=== PATIENT | female | born 1960 | race Caucasian/White ===

== ENCOUNTER → 2016-07-30 | Outpatient (REF) | payer MEDICARE, MEDICAID ==
[~2016-07-30] MED LIST: /ADVA50050; ACET500C PO; ADV250INH INH; ADVA230A INH; AMLO-59 PO; AMLO10TA2 PO; ATOR40TA PO; BISO10TA PO; BISO5TAB5 PO; CLAR10CA3 PO; CYMB60CA3 PO; HYDR25TA6; KLON0.5T PO; LIDO5DIS; LISI2.5T; NICO21DI4; OSEL75CA PO; PANT40TA2 PO; PERC5TAB6 PO; PERC5TAB8; POTA20TA; PRED10TA2; PRED20TAB PO; PROA1AER INH; PROV90AE; SENO17.2; SPIR25TA2 PO; TIOT18INH INH; VIBR100C PO; VICO5TAB; VICO5TAB OR; ZEST20TA4 OR
== END ==
LOC: M LAB REF 17:13
PROVIDERS: ATTEND Internal Medicine Nephrology
DX: N39.0 Urinary tract infection, site not specified (principal)

== ENCOUNTER → 2016-08-09 | Outpatient (CLI) | payer MEDICARE, MEDICAID ==
[2016-08-17 00:07] LABS: Codeine Negative (.); Hydrocodone 56.2 ng/mL (.); Hydromorphone Negative (.); Morphine Negative (.)
== END ==
LOC: M WUC 12:47
PROVIDERS: ATTEND Family Medicine
DX: F11.90 Opioid use, unspecified, uncomplicated (principal); Z79.899 Other long term (current) drug therapy; Z23 Encounter for immunization
CPT/HCPCS: 36415; 80307; 90686; G0008; G0463

== ENCOUNTER → 2016-10-04 | Outpatient (CLI) | payer MEDICARE ==
--- NOTE | 2016-10-04 18:02 | REPMRS ---
Patient History The patient states she has not had a clinical breast exam in over a year. Patient is postmenopausal. No known family history of cancer. Digital Woman Screen Mammo: October 04, 2016 - Exam #: [id number] Bilateral CC and MLO view(s) were taken. Technologist: Alissa Moralez, Technologist Prior study comparison: September 14, 2014, digital woman screen mammo performed at [facility]. FINDINGS: There are scattered fibroglandular densities. There has been no change in the appearance of the mammogram from the prior studies. There is a mild amount of scattered fibroglandular density which is fairly symmetric. There is no interval development of dominant mass, architectural distortion, or clustered microcalcification suggestive of malignancy. ASSESSMENT: BI-RADS/ACR category 1 mammogram. Negative. Recommendation Routine screening mammogram in 1 year (for women over age 40). This mammogram was interpreted with the aid of an FDA-approved computer-aided dectection system. Electronically Signed By: Rsaheed Doe MD 10/04/16 0216
== END ==
LOC: M WHC 13:30
PROVIDERS: ATTEND Family Medicine
DX: Z12.31 Encounter for screening mammogram for malignant neoplasm of breast (principal)

== ENCOUNTER → 2016-10-19 | Outpatient (CLI) | payer MEDICARE ==
--- NOTE | 2016-10-21 06:12 | REP ---
MRI LUMBAR SPINE WITHOUT CONTRAST: HISTORY: Back pain. COMPARISON: 01/10/2014. Decreased signal intensity on T2-weighted images is present in the L4-5 and L5-S1 intervertebral discs. The discs are ___ decreased in height . These findings are consistent with disc degeneration. There is no disc bulge or herniation at the L1-2 and L2-3 levels. The nerves exit the neural foramina without compression. A diffuse disc bulge is present at the L3-4 level. There is hypertrophy of the ligamenta flava and posterior articulating facets. These findings produce minimal central canal stenosis. The L3 nerves exit the neural foramina without compression. A diffuse disc bulge is present at the L4-5 level. There is hypertrophy of the ligament flava and posterior articulating facets. These findings produce minimal central canal stenosis. The L4 nerves exit the neural foramina without compression. A diffuse disc bulge and small central disc protrusion are present at the L5-S1 level. There is minimal compression of the thecal sac. There is hypertrophy of the posterior articulating facets. There is compression of the right L5 nerve in the neural foramen. The left L5 nerve exits the neural foramen without compression. The conus medullaris is normal in appearance terminating at the level of the L1-2 intervertebral disc. Normal signal intensity is present in the lumbar vertebral bodies. IMPRESSION: 1. Minimal central canal stenosis at the L3-4 and L4-5 levels secondary to disc bulge, ligamentous and facet hypertrophy. 2. Diffuse disc bulge and small central disc protrusion at the L5-S1 level with minimal thecal sac compression. There is compression of the right L5 nerve in the neural foramen. The L5 nerve compression is a new finding. Signed by Ozzie Bennett MD 10/21/2016 08:09 A
== END ==
LOC: M RAD 12:10
PROVIDERS: ATTEND Family Medicine
DX: M51.26 Other intervertebral disc displacement, lumbar region (principal); M48.06 Spinal stenosis, lumbar region; M51.27 Other intervertebral disc displacement, lumbosacral region; M47.816 Spondylosis without myelopathy or radiculopathy, lumbar region

== ENCOUNTER → 2016-11-12 | Outpatient (REF) | payer MEDICARE | LOC: M SFHCWAGY 14:02 | PROVIDERS: ATTEND Nurse Practitioner Women's Health | DX: Z12.4 Encounter for screening for malignant neoplasm of cervix (principal); R87.618 Other abnormal cytological findings on specimens from cervix uteri; Z12.12 Encounter for screening for malignant neoplasm of rectum | CPT/HCPCS: 82270; 87624; G0101; G0123 ==

== ENCOUNTER → 2017-01-03 | Outpatient (CLI) | payer MEDICARE ==
[~2017-01-03] MED LIST changes: +AMLO-140 PO; -AMLO-59 PO; -ATOR40TA PO; +ATOR40TA75 PO; +PERC5TAB12 PO; -PERC5TAB6 PO; -PROA1AER INH; +PROAAER10 INH
--- NOTE | 2017-01-08 08:51 | DEXA ---
AP SPINE L1 - L4 1.038 -1.3 -0.4 LT FEMUR TOTAL 0.804 -1.6 -0.9 RT FEMUR TOTAL 0.790 -1.7 -1.0 TOTAL BODY TOTAL OTHER DUAL FEMUR FRAX* ASSESSMENT Risk factors: Premature menopause, tobacco use 10 year probability of fracture Major osteoporotic fracture 11.9 % Hip fracture 2.7 % COMMENTS: There is low bone density of the spine and hips. FOLLOW-UP: Recommendation for the next bone density exam: 2 years. MELANIE
== END ==
LOC: M WHC 13:13
PROVIDERS: ATTEND Nurse Practitioner Women's Health
DX: Z13.820 Encounter for screening for osteoporosis (principal); Z78.0 Asymptomatic menopausal state; F17.200 Nicotine dependence, unspecified, uncomplicated

== ENCOUNTER → 2017-01-29 | Outpatient (CLI) | payer MEDICARE ==
--- NOTE | 2017-01-30 08:09 | REP ---
Clinical: Acute renal failure. Technique: Real time gusman scale ultrasound examination using curved array transducer. Findings: The right kidney measures 7.8 x 2.8 x 2.1 cm and appears mildly atrophic but otherwise normal in contour, reniform shape and echogenicity. No hydronephrosis, nephrolithiasis or cystic/mass lesion identified. The left kidney is normal in contour, size, echogenicity and reniform shape measuring 9.1 x 3.9 x 4.4 cm. No hydronephrosis, nephrolithiasis, cystic or mass lesion appreciated. The bladder is incompletely distended and grossly unremarkable. Impression: Mild atrophic appearance to the right kidney. Normal left kidney. Signed by Donovan Wu MD 01/30/2017 08:01 A
== END ==
LOC: M RAD 13:45
PROVIDERS: ATTEND Internal Medicine Nephrology
DX: N17.9 Acute kidney failure, unspecified (principal)

== ENCOUNTER → 2017-07-01 | Outpatient (REF) | payer MEDICARE, MEDICAID ==
[2017-07-02 14:09] LABS: SODIUM,RANDOM URINE 76 MEQ/L
[2017-07-02 14:11] LABS: OSMOLALITY SERUM 296 MOSM/KG (275-295)
[2017-07-02 14:12] LABS: OSMOLALITY URINE 238 MOSM/KG (500-800)
== END ==
LOC: M LAB REF 07-02 13:20
DX: E87.1 Hypo-osmolality and hyponatremia (principal)
CPT/HCPCS: 83930

== ENCOUNTER 2017-08-19 14:14 | Emergency (ER) | payer MEDICARE, MEDICAID ==
[2017-08-19 15:17] LABS: INFLUENZA A AMPLIFICATION NEGATIVE (NEGATIVE); INFLUENZA B AMPLIFICATION NEGATIVE (NEGATIVE)
== END 2017-08-19 16:00 | disposition home or self-care (01) ==
LOC: M ED 14:14
DX: J18.9 Pneumonia, unspecified organism (principal); F17.200 Nicotine dependence, unspecified, uncomplicated; Z88.8 Allergy status to other drugs, medicaments and biological substances; Z79.899 Other long term (current) drug therapy; Z79.51 Long term (current) use of inhaled steroids
CPT/HCPCS: 71046

== ENCOUNTER → 2017-08-27 | Outpatient (REF) | payer MEDICARE ==
[2017-08-27 16:55] LABS: AMPHETAMINES URINE REFLEX NEGATIVE (NEGATIVE); BARBITURATES URINE REFLEX NEGATIVE (NEGATIVE); BENZODIAZEPINES URINE REFLEX NEGATIVE (NEGATIVE); CANNABINOIDS URINE REFLEX NEGATIVE (NEGATIVE); COCAINE METABOLITE URINE REFLE NEGATIVE (NEGATIVE); METHADONE URINE REFLEX NEGATIVE (NEGATIVE); PHENCYCLIDINE URINE REFLEX NEGATIVE (NEGATIVE)
[2017-08-27 16:59] LABS: OPIATES URINE REFLEX PENDING CONFIRMATION (NEGATIVE)
[2017-09-01 14:11] LABS: Opiates Negative (Cutoff=200)
== END ==
LOC: M SFHCPLAZ 13:44
DX: J18.9 Pneumonia, unspecified organism (principal); G89.29 Other chronic pain
CPT/HCPCS: G0480

== ENCOUNTER → 2017-09-11 | Outpatient (CLI) | payer MEDICARE, MEDICAID | LOC: M RAD 13:14 | DX: M79.604 Pain in right leg (principal) | CPT/HCPCS: 73590 ==

== ENCOUNTER → 2017-12-15 | Outpatient (CLI) | payer MEDICARE | LOC: M SMT 15:06 | DX: M54.2 Cervicalgia (principal); M47.812 Spondylosis without myelopathy or radiculopathy, cervical region | CPT/HCPCS: 72052 ==

== ENCOUNTER → 2017-12-16 | Outpatient (REF) | payer MEDICARE, MEDICAID | LOC: M SFHCPLAZ 17:09 | DX: R30.0 Dysuria (principal); F17.210 Nicotine dependence, cigarettes, uncomplicated | CPT/HCPCS: 87088; 87186 ==

== ENCOUNTER → 2018-01-01 | Outpatient (CLI) | payer MEDICARE, MEDICAID | LOC: M RAD 14:42 | DX: Z12.2 Encounter for screening for malignant neoplasm of respiratory organs (principal); R91.8 Other nonspecific abnormal finding of lung field; F17.210 Nicotine dependence, cigarettes, uncomplicated | CPT/HCPCS: G0297 ==

== ENCOUNTER → 2018-03-05 | Outpatient (REF) | payer MEDICARE, MEDICAID ==
[2018-03-05 19:27] LABS: INR 0.97; PROTHROMBIN TIME 12.9 SECONDS (12.1-14.4)
[2018-03-05 19:28] LABS: PARTIAL THROMBOPLASTIN TIME 32.9 SECONDS (25.4-37.6)
[2018-03-05 20:05] LABS: HEMATOCRIT 38.1 % (36.0-47.0); HEMOGLOBIN 12.9 g/dl (12.0-15.5); MEAN CORPUSCULAR HEMOGLOBIN 34.2 pg (27.0-33.0); MEAN CORPUSCULAR HGB CONC 33.9 g/dl (32.0-36.5); MEAN CORPUSCULAR VOLUME 101.1 fl (80.0-96.0); PLATELET COUNT, AUTOMATED 204 10^3/uL (150-450); RED BLOOD COUNT 3.77 10^6/uL (4.00-5.40); RED CELL DISTRIBUTION WIDTH 13.9 % (11.5-14.5); WHITE BLOOD COUNT 4.5 10^3/uL (4.0-10.0)
== END ==
LOC: M LABDRAWP 16:05
DX: R91.8 Other nonspecific abnormal finding of lung field (principal); Z79.01 Long term (current) use of anticoagulants
CPT/HCPCS: 85610

== ENCOUNTER → 2018-04-06 | Outpatient (CLI) | payer MEDICARE, MEDICAID ==
[2018-04-06 11:08] LABS: BASO # 0.1 10^3/uL (0.0-0.2); BASO % 1.2 % (0.0-1.0); EOS # 0.1 10^3/uL (0.0-0.50); EOS % 2.3 % (0.0-3.0); HEMATOCRIT 28.3 % (36.0-47.0); HEMOGLOBIN 9.2 g/dl (12.0-15.5); IMMATURE GRANULOCYTE % 1.1 % (0-3.0); LYMPH # 1.8 10^3/uL (1.5-4.5); MEAN CORPUSCULAR HEMOGLOBIN 32.2 pg (27.0-33.0); MEAN CORPUSCULAR HGB CONC 32.5 g/dl (32.0-36.5); MONO # 0.6 10^3/uL (0.0-0.8); MONO % 10.2 % (0.0-5.0); NEUTROPHILS # 3.1 10^3/uL (1.8-7.7); NEUTROPHILS % 54.2 % (36.0-66.0); PLATELET COUNT, AUTOMATED 490 10^3/uL (150-450); RED BLOOD COUNT 2.86 10^6/uL (4.00-5.40); RED CELL DISTRIBUTION WIDTH 13.2 % (11.5-14.5); WHITE BLOOD COUNT 5.7 10^3/uL (4.0-10.0)
== END ==
LOC: M SMT 09:25
DX: J95.811 Postprocedural pneumothorax (principal)
CPT/HCPCS: 85025

== ENCOUNTER → 2018-04-10 | Outpatient (REF) | payer MEDICARE, MEDICAID ==
[2018-04-10 16:19] LABS: HEMATOCRIT 29.8 % (36.0-47.0); HEMOGLOBIN 9.3 g/dl (12.0-15.5); MEAN CORPUSCULAR HEMOGLOBIN 30.7 pg (27.0-33.0); MEAN CORPUSCULAR HGB CONC 31.2 g/dl (32.0-36.5); MEAN CORPUSCULAR VOLUME 98.3 fl (80.0-96.0); PLATELET COUNT, AUTOMATED 573 10^3/uL (150-450); RED BLOOD COUNT 3.03 10^6/uL (4.00-5.40); RED CELL DISTRIBUTION WIDTH 13.2 % (11.5-14.5); WHITE BLOOD COUNT 5.5 10^3/uL (4.0-10.0)
[2018-04-10 16:27] LABS: ALBUMIN 2.7 GM/DL (3.2-5.2); ALBUMIN/GLOBULIN RATIO 0.64 (1.00-1.93); ALKALINE PHOSPHATASE 310 U/L (45-117); ALT/SGPT 15 U/L (12-78); ANION GAP 8 MEQ/L (8-16); AST/SGOT 15 U/L (7-37); BILIRUBIN,TOTAL 0.2 MG/DL (0.2-1.0); BLOOD UREA NITROGEN 19 MG/DL (7-18); CALCIUM LEVEL 9.6 MG/DL (8.5-10.1); CARBON DIOXIDE LEVEL 28 MEQ/L (21-32); CHLORIDE LEVEL 102 MEQ/L (98-107); CREATININE FOR GFR 1.29 MG/DL (0.55-1.30); FERRITIN 220 NG/ML (8-252); GLOMERULAR FILTRATION RATE 45.3 (>51); GLUCOSE, FASTING 93 MG/DL (70-100); IRON (FE) 32 UG/DL (50-170); POTASSIUM SERUM 4.7 MEQ/L (3.5-5.1); SODIUM LEVEL 138 MEQ/L (136-145); TOTAL IRON BINDING CAPACITY 247 UG/DL (250-450); TOTAL PROTEIN 6.9 GM/DL (6.4-8.2)
[2018-04-10 16:36] LABS: FOLATE 3.5 NG/ML (>5.4)
== END ==
LOC: M SFHCPLAZ 12:54
DX: D64.9 Anemia, unspecified (principal); R63.0 Anorexia
CPT/HCPCS: 82746

== ENCOUNTER → 2018-04-20 | Outpatient (CLI) | payer MEDICARE, MEDICAID | LOC: M SMT 08:52 | DX: R91.8 Other nonspecific abnormal finding of lung field (principal) | CPT/HCPCS: 71046 ==

== ENCOUNTER → 2018-05-04 | Outpatient (CLI) | payer MEDICARE, MEDICAID | LOC: M SMT 09:04 | DX: J44.9 Chronic obstructive pulmonary disease, unspecified (principal); J98.4 Other disorders of lung | CPT/HCPCS: 71046 ==

== ENCOUNTER → 2018-06-01 | Outpatient (REF) | payer MEDICARE | LOC: M SFHCPLAZ 10:18 | DX: F11.90 Opioid use, unspecified, uncomplicated (principal); Z79.891 Long term (current) use of opiate analgesic | CPT/HCPCS: 80307 ==

== ENCOUNTER 2018-06-12 23:42 | Emergency (ER) | payer OTHER, MEDICARE, MEDICAID ==
[2018-06-12] MEDS: NS 1,000 ML IV (22:34)
[2018-06-12] MEDS: KETOROLAC 30 MG/ML VIAL (J1885) IV (22:34)
[2018-06-12 22:36] LABS: HEMATOCRIT 34.8 % (36.0-47.0); HEMOGLOBIN 11.2 g/dl (12.0-15.5); MEAN CORPUSCULAR HEMOGLOBIN 28.4 pg (27.0-33.0); MEAN CORPUSCULAR HGB CONC 32.2 g/dl (32.0-36.5); MEAN CORPUSCULAR VOLUME 88.3 fl (80.0-96.0); PLATELET COUNT, AUTOMATED 264 10^3/uL (150-450); RED BLOOD COUNT 3.94 10^6/uL (4.00-5.40); RED CELL DISTRIBUTION WIDTH 12.9 % (11.5-14.5); WHITE BLOOD COUNT 3.5 10^3/uL (4.0-10.0)
[2018-06-12 22:37] LABS: POSITIVE MORPH POS FLAG
[2018-06-12 22:38] LABS: ADD MANUAL DIFFER YES; DIFF SLIDE NUMBER 297
[2018-06-12 22:47] LABS: INR 0.91; PARTIAL THROMBOPLASTIN TIME 31.1 SECONDS (25.4-37.6); PROTHROMBIN TIME 12.3 SECONDS (12.1-14.4)
[2018-06-12 22:53] LABS: BASOPHILS 5 % (0-4); EOSINOPHILS 6 % (0-5); LYMPHOCYTES 40 % (16-52); MONOCYTES 10 % (0-8); NEUTROPHILS 39 % (35-75)
[2018-06-12 22:54] LABS: PLATELET ESTIMATE NORMAL (NORMAL)
[2018-06-12 23:08] LABS: ALBUMIN 3.1 GM/DL (3.2-5.2); ALBUMIN/GLOBULIN RATIO 0.89 (1.00-1.93); ALKALINE PHOSPHATASE 124 U/L (45-117); ALT/SGPT 11 U/L (12-78); ANION GAP 8 MEQ/L (8-16); AST/SGOT 12 U/L (7-37); BILIRUBIN,DIRECT < 0.1 MG/DL (0.0-0.2); BILIRUBIN,TOTAL 0.3 MG/DL (0.2-1.0); BLOOD UREA NITROGEN 19 MG/DL (7-18); CALCIUM LEVEL 8.6 MG/DL (8.5-10.1); CARBON DIOXIDE LEVEL 27 MEQ/L (21-32); CHLORIDE LEVEL 101 MEQ/L (98-107); CREATININE FOR GFR 1.42 MG/DL (0.55-1.30); GLOMERULAR FILTRATION RATE 40.6 (>51); GLUCOSE, FASTING 85 MG/DL (70-100); LIPASE 96 U/L (73-393); POTASSIUM SERUM 4.4 MEQ/L (3.5-5.1); SODIUM LEVEL 136 MEQ/L (136-145); TOTAL PROTEIN 6.6 GM/DL (6.4-8.2)
[~2018-06-12 23:42] MED LIST changes: -/ADVA50050; -ACET500C PO; -ADV250INH INH; -ADVA230A INH; -AMLO-140 PO; -AMLO10TA2 PO; -ATOR40TA75 PO; -BISO10TA PO; -BISO5TAB5 PO; -CLAR10CA3 PO; -CYMB60CA3 PO; -HYDR25TA6; +ISOVUE-370 76% 100ML VIAL (Q9967) As Ordered; -KLON0.5T PO; -LIDO5DIS; -LISI2.5T; -NICO21DI4; -OSEL75CA PO; -PANT40TA2 PO; -PERC5TAB12 PO; -PERC5TAB8; -POTA20TA; -PRED10TA2; -PRED20TAB PO; -PROAAER10 INH; -PROV90AE; -SENO17.2; -SPIR25TA2 PO; -TIOT18INH INH; -VIBR100C PO; -VICO5TAB; -VICO5TAB OR; -ZEST20TA4 OR
== END 2018-06-13 02:09 | disposition home or self-care (01) ==
LOC: M ED 06-13 02:09
DX: S29.012A Strain of muscle and tendon of back wall of thorax, initial encounter (principal); V49.59XA Passenger injured in collision with other motor vehicles in traffic accident, initial encounter; Y92.410 Unspecified street and highway as the place of occurrence of the external cause; J44.9 Chronic obstructive pulmonary disease, unspecified; D64.9 Anemia, unspecified; G89.29 Other chronic pain; M54.2 Cervicalgia; Z79.899 Other long term (current) drug therapy; Z79.82 Long term (current) use of aspirin; Z88.8 Allergy status to other drugs, medicaments and biological substances; Z87.891 Personal history of nicotine dependence
CPT/HCPCS: Q9967

== ENCOUNTER → 2018-07-16 | Outpatient (CLI) | payer OTHER, MEDICARE, MEDICAID ==
[~2018-07-16] MED LIST changes: +/ADVA50050; +ACET500C PO; +ADV250INH INH; +ADVA230A INH; +AMLO-140 PO; +AMLO10TA5 PO; +APAP325T4 PO; +ASPI1TAB PO; +ATOR40TA75 PO; +AVEL1TAB3 PO; +BISO10TA PO; +BISO5TAB5 PO; +CALC1CAP31 PO; +CLAR10CA3 PO; +CYMB60CA3 PO; +HYDR25TA6; -ISOVUE-370 76% 100ML VIAL (Q9967) As Ordered; +KLON0.5T PO; +LIDO5DIS; +LIDO5TD TOP; +LISI2.5T; +NICO21DI4; +NICO21DI6 TD; +OSEL75CA PO; +PANT40TA3 PO; +PERC5TAB12 PO; +PERC5TAB8; +POTA20TA; +PRED10TA2; +PRED20TAB PO; +PREG100CA PO; +PROAAER10 INH; +PROV90AE; +SENO17.2; +SPIR-10 PO; +TIOT18INH INH; +VIBR100C PO; +VICO5TAB; +VICO5TAB OR; +ZEST20TA4 OR
--- NOTE | 2018-07-16 14:35 | REP ---
CT cervical spine without contrast HISTORY: Neck pain COMPARISON: None There is no acute fracture or subluxation. Disc bulges are present at the C3-4 and C6-7 levels. Disc bulges with associated osteophyte formation are present at the C4-5 and C5-6 levels. There is minimal narrowing of the spinal canal. Uncinate process hypertrophy is present at the C4-5 and C5-6 levels. This produces mild to moderate narrowing of the neural foramina. The C4-5 and C5-6 intervertebral discs are decreased in height consistent with disc degeneration. IMPRESSION: 1. There is no acute fracture or subluxation. 2. There is cervical spondylosis at the C3-4 through C6-7 levels. Electronically Signed by Ozzie Bennett MD 07/16/2018 02:27 P
--- NOTE | 2018-07-16 14:44 | REP ---
CT Lumbar Spine without contrast HISTORY: Back pain COMPARISON: None There is no disc bulge or herniation at the L1-2 level. The L1 nerves exit the neural foramina without compression. A diffuse disc bulge is present at the L2-3 level. There is minimal compression of the thecal sac. The L2 nerves exit the neural foramina without compression. A diffuse disc bulge is present at the L3-4 level. There is minimal compression of the thecal sac. The L3 nerves exit the neural foramina without compression. A diffuse disc bulge is present at the L4-5 level. There is hypertrophy of the ligamenta flava and posterior to the facets. These findings produce mild central canal stenosis. The L4 nerves exit the neural foramina without compression. Diffuse disc bulge is present at the L5-L1 level. There is minimal compression of the thecal sac. There is hypertrophy of the posterior to the facets. There is compression of the L5 nerves in the neural foramina. The intervertebral discs and vertebral bodies are normal in height. There is no subluxation. IMPRESSION: 1. Diffuse disc bulges at the L2-3 , L3-4 and L5-L1 levels with minimal thecal sac compression. There is compression of the L5 nerves in the neural foramina. 2. Mild central canal stenosis at the L4-5 level secondary to disc bulge, ligamentous and facet hypertrophy. Electronically Signed by Ozzie Bennett MD 07/16/2018 02:35 P
--- NOTE | 2018-07-16 14:57 | REP ---
CT thoracic spine without contrast. HISTORY: Back pain COMPARISON : None There is no acute fracture or subluxation. There is no disc bulge or herniation. The spinal canal and neural foramina are patent. The intervertebral discs and vertebral bodies are normal in height. Anterior osteophytes are present throughout the thoracic spine. Atelectasis or scarring is present in the the right lower lobe. IMPRESSION: There is no disc bulge or herniation. Electronically Signed by Ozzie Bennett MD 07/16/2018 02:48 P
== END ==
LOC: M RAD 13:53
PROVIDERS: ATTEND Family Medicine
DX: M47.892 Other spondylosis, cervical region (principal); M51.26 Other intervertebral disc displacement, lumbar region; M48.061 Spinal stenosis, lumbar region without neurogenic claudication

== ENCOUNTER → 2018-08-25 | Outpatient (REF) | payer OTHER ==
[2018-08-25 13:54] LABS: BASO # 0.1 10^3/uL (0.0-0.2); BASO % 2.4 % (0.0-1.0); EOS # 0.1 10^3/uL (0.0-0.50); EOS % 3.7 % (0.0-3.0); HEMATOCRIT 40.9 % (36.0-47.0); HEMOGLOBIN 12.7 g/dl (12.0-15.5); LYMPH # 1.6 10^3/uL (1.5-4.5); LYMPH % 54.4 % (24.0-44.0); MEAN CORPUSCULAR HEMOGLOBIN 27.9 pg (27.0-33.0); MEAN CORPUSCULAR HGB CONC 31.1 g/dl (32.0-36.5); MEAN CORPUSCULAR VOLUME 89.7 fl (80.0-96.0); MONO # 0.3 10^3/uL (0.0-0.8); MONO % 11.1 % (0.0-5.0); NEUTROPHILS % 28.4 % (36.0-66.0); PLATELET COUNT, AUTOMATED 318 10^3/uL (150-450); RED BLOOD COUNT 4.56 10^6/uL (4.00-5.40)
[2018-08-25 14:25] LABS: NEUTROPHILS # 0.8 10^3/uL (1.8-7.7)
[2018-08-25 14:43] LABS: CALCIUM LEVEL 9.5 MG/DL (8.5-10.1); CREATININE FOR GFR 1.69 MG/DL (0.55-1.30); GLOMERULAR FILTRATION RATE 33.2 (>51); PERCENT SATURATION 17.5 % (13.2-45.0); POTASSIUM SERUM 4.7 MEQ/L (3.5-5.1)
== END ==
LOC: M SFHCPLAZ 11:10
PROVIDERS: ATTEND Family Medicine
DX: D64.9 Anemia, unspecified (principal); M54.5 Low back pain

== ENCOUNTER → 2018-09-03 | Outpatient (CLI) | payer OTHER, MEDICARE, MEDICAID ==
--- NOTE | 2018-09-03 18:42 | REP ---
Lumbar spine MRI study without contrast: History: Low back pain. Comparison MRI study is from October 19, 2016. Technique: Sagittal and axial T1 and T2-weighted scans are acquired in the usual fashion with and without fat saturation. Sequences include spin echo, turbo spin-echo, and STIR imaging sequences. MRI findings: Cortical and medullary bone signal intensity are normal. Vertebral body heights are preserved. Alignment is normal. The tip of the conus medullaris is normal in position and appearance at L1. Significant atrophy is noted in the right kidney as before. No other extra spinal abnormality. At the L5-S1 level, there is a broad-based central disc protrusion indenting the ventral margin of the thecal sac as before. There is moderate osteoarthritic facet hypertrophy and some ligamentum flavum hypertrophy noted bilaterally. There is a right foraminal disc bulge producing right neural foraminal narrowing. This is more prominent than on the October 19, 2016 study. There is minimal narrowing of the left neural foramen. At L4-5, there is mild diffuse disc bulging. Facet hypertrophy and ligamentum flavum hypertrophy is noted. Canal size is borderline. No nerve root compression is appreciated. At L3-4, there is no significant abnormality. At L2-3 and L1-2 no significant abnormality is seen. Impression: Central disc protrusion at L5-S1 with right foraminal disc bulging producing significant right neural foraminal narrowing and mild left neural foraminal narrowing is seen. The facet hypertrophy is noted. Borderline canal size at L4-5. The L5-S1 neural foraminal narrowing is somewhat more prominent. Otherwise unchanged. Electronically Signed by Winston Deo MD 09/03/2018 07:22 P
== END ==
LOC: M RAD 16:39
PROVIDERS: ATTEND Family Medicine
DX: M54.5 Low back pain (principal)

== ENCOUNTER → 2018-09-16 | Outpatient (CLI) | payer MEDICARE, MEDICAID ==
--- NOTE | 2018-09-17 09:21 | REPMRS ---
Patient History The patient states she has not had a clinical breast exam in over a year. No known family history of cancer. Digital Woman Screen Mammo: September 16, 2018 - Exam #: [id number] Bilateral CC and MLO view(s) were taken. Technologist: Letty Saavedra Technologist Prior study comparison: October 04, 2016, digital woman screen mammo performed at [facility]. September 14, 2014, digital woman screen mammo performed at [facility]. FINDINGS: There are scattered fibroglandular densities. There has been no change in the appearance of the mammogram from the prior studies. There is a mild amount of scattered fibroglandular density which is fairly symmetric. There is no interval development of dominant mass, architectural distortion, or clustered microcalcification suggestive of malignancy. 3-D tomosynthesis shows no additional findings. Assessment: BI-RADS/ACR category 1 mammogram. Negative Mammogram. Recommendation Routine screening mammogram of both breasts in 1 year (for women over age 40). This patient's Lifetime Breast Cancer RIsk is estimated at 6.1 %. This mammogram was interpreted with the aid of an FDA-approved computer-aided dectection system. Electronically Signed By: Rasheed Doe MD 09/17/18 0921
== END ==
LOC: M WHC 13:04
PROVIDERS: ATTEND Family Medicine
DX: Z12.31 Encounter for screening mammogram for malignant neoplasm of breast (principal)

== ENCOUNTER → 2018-10-13 | Outpatient (REF) | payer MEDICARE, MEDICAID ==
[~2018-10-13] MED LIST changes: -/ADVA50050; +ADVA1AER2; -ASPI1TAB PO; +ASPI81TA26 PO; -BISO10TA PO; +BISO10TA13 PO; +SENN17.2; -SENO17.2
[2018-10-13 13:35] LABS: BASO % 0.9 % (0.0-1.0); EOS # 0.2 10^3/uL (0.0-0.50); EOS % 5.6 % (0.0-3.0); HEMATOCRIT 38.5 % (36.0-47.0); HEMOGLOBIN 12.1 g/dl (12.0-15.5); LYMPH # 1.3 10^3/uL (1.5-4.5); LYMPH % 39.1 % (24.0-44.0); MEAN CORPUSCULAR HEMOGLOBIN 28.8 pg (27.0-33.0); MEAN CORPUSCULAR HGB CONC 31.4 g/dl (32.0-36.5); MEAN CORPUSCULAR VOLUME 91.7 fl (80.0-96.0); MONO # 0.3 10^3/uL (0.0-0.8); MONO % 10.6 % (0.0-5.0); NEUTROPHILS # 1.4 10^3/uL (1.8-7.7); NEUTROPHILS % 43.8 % (36.0-66.0); PLATELET COUNT, AUTOMATED 208 10^3/uL (150-450); WHITE BLOOD COUNT 3.2 10^3/uL (4.0-10.0)
[2018-10-13 13:49] LABS: INR 0.86; PROTHROMBIN TIME 11.8 SECONDS (12.1-14.4)
[2018-10-13 14:00] LABS: ALBUMIN 3.6 GM/DL (3.2-5.2); BILIRUBIN,TOTAL 0.2 MG/DL (0.2-1.0); CALCIUM LEVEL 9.4 MG/DL (8.5-10.1); CREATININE FOR GFR 1.77 MG/DL (0.55-1.30); GLOMERULAR FILTRATION RATE 31.5 (>51); POTASSIUM SERUM 4.7 MEQ/L (3.5-5.1); TOTAL PROTEIN 6.5 GM/DL (6.4-8.2)
[2018-10-14 11:08] LABS: HEPATITIS C VIRUS ABY INDEX 0.1 INDEX (<0.8)
== END ==
LOC: M SFHCPLAZ 11:14
PROVIDERS: ATTEND Family Medicine
DX: R14.0 Abdominal distension (gaseous) (principal)
CPT/HCPCS: 36415; 80053; 82172; 83010; 83883; 85025; 85610; 86803; G0463

== ENCOUNTER → 2018-10-22 | Outpatient (REF) | payer MEDICARE, MEDICAID ==
[2018-10-22 19:40] LABS: CALCIUM LEVEL 9.3 MG/DL (8.5-10.1); CREATININE FOR GFR 1.54 MG/DL (0.55-1.30); POTASSIUM SERUM 4.6 MEQ/L (3.5-5.1)
== END ==
LOC: M SFHCPLAZ 14:57
PROVIDERS: ATTEND Family Medicine
DX: R79.89 Other specified abnormal findings of blood chemistry (principal)

== ENCOUNTER → 2018-10-26 | Outpatient (CLI) | payer MEDICARE, MEDICAID ==
--- NOTE | 2018-10-27 04:36 | REP ---
Clinical: Distension and the abdominal pain. Technique: Roland scale ultrasound using curved array transducer. Findings: The liver, spleen and pancreas are normal in contour, size, and echogenicity without focal hepatic, splenic or pancreatic lesions identified. The gallbladder is normal without gallstones, wall thickening or pericholecystic fluid. No intrahepatic biliary ductal dilatation is appreciated. The common bile duct is mildly prominent measuring between 6.8 and 8.8 mm diameter but without obvious obstructing stone or abnormality. The right kidney appears mildly atrophic with cortical thinning, increased central fatty changes and measures 8.7 x 2.4 x 2.2 cm. Left kidney measures 9.6 x 4.2 x 4.2 cm and appears normal. Aorta appears normal and measures 1.5 cm maximal diameter. No ascites noted. Impression: 1. Mildly atrophic appearing right kidney. 2. Otherwise relatively normal complete abdominal ultrasound. Electronically Signed by Donovan Wu MD 10/27/2018 04:28 A
== END ==
LOC: M RAD 09:07
PROVIDERS: ATTEND Family Medicine
DX: R14.0 Abdominal distension (gaseous) (principal); N26.1 Atrophy of kidney (terminal)

== ENCOUNTER → 2018-10-28 | Outpatient (REF) | payer MEDICARE, MEDICAID ==
[2018-10-28 12:53] LABS: APPEARANCE, URINE CLEAR (CLEAR); BACTERIA, URINE AUTO 1+ (NEGATIVE); BILIRUBIN, URINE AUTO NEGATIVE (NEGATIVE); BLOOD, URINE BLOOD 1+ (NEGATIVE); COLOR, URINE YELLOW (YELLOW); GLUCOSE, URINE (UA) AUTO NEGATIVE (NEGATIVE); KETONE, URINE AUTO NEGATIVE (NEGATIVE); LEUKOCYTE ESTERASE, URINE AUTO 1+ (NEGATIVE); NITRITE, URINE AUTO NEGATIVE (NEGATIVE); PROTEIN, URINE AUTO NEGATIVE (NEGATIVE); RBC, URINE AUTO 2 /HPF (0-3); SPECIFIC GRAVITY URINE AUTO 1.008 (1.002-1.035); SQUAMOUS EPITHELIAL CELL UR AU 0 /HPF (0-6); UROBILINOGEN, URINE AUTO 0.2 mg/dL (0.0-2.0); WBC, URINE AUTO 11 /HPF (0-3)
== END ==
LOC: M SFHCPLAZ 12:25
PROVIDERS: ATTEND Family Medicine
DX: R79.89 Other specified abnormal findings of blood chemistry (principal)

== ENCOUNTER → 2018-11-02 | Outpatient (CLI) | payer MEDICARE, MEDICAID ==
--- NOTE | 2018-11-03 04:49 | REP ---
Clinical: Elevated creatinine levels. Technique: Real time gusman scale evaluation using curved array transducer. Findings: The right kidney is mildly atrophic and echogenic measuring 7.1 x 2.1 x 2.3 cm without evidence for nephrolithiasis, hydronephrosis, cystic or mass lesion. The left kidney is normal in contour, size, echogenicity, and reniform shape measuring 9.6 x 4.2 x 4.6 cm. No nephrolithiasis, hydronephrosis, cystic or mass lesion appreciated. The bladder is incompletely distended but grossly normal in appearance. Impression: 1. Mildly atrophic appearance to the right kidney with increased echogenicity suggesting asymmetric renal disease. 2. Normal appearance to the left kidney. Electronically Signed by Donovan Wu MD 11/03/2018 04:41 A
== END ==
LOC: M RAD 14:13
PROVIDERS: ATTEND Family Medicine
DX: R79.89 Other specified abnormal findings of blood chemistry (principal)

== ENCOUNTER 2019-01-04 16:54 | Emergency (ER) | payer MEDICARE, MEDICAID ==
[~2019-01-04] VITALS: Ht 162.6 cm; Wt 60.6 kg
--- NOTE | 2019-01-04 19:25 | REP ---
LEFT KNEE: Five views of the left knee are performed. No acute fracture or dislocation is seen. No intrinsic osseous pathology is seen. There is a moderate to large joint effusion. Vascular calcifications are seen posteriorly. IMPRESSION: Moderate to large joint effusion. Electronically Signed by Facundo Roland MD 01/05/2019 11:14 A
[2019-01-04] MEDS ORDERED: ACETAMINOPHEN TAB 650MG DOSE (2X325MG) PO ONE (20:15)
[2019-01-04 20:28] VITALS: BP 160/80
== END 2019-01-04 21:37 | disposition home or self-care (01) ==
LOC: M ED 16:54
DX: M25.462 Effusion, left knee (principal); K21.9 Gastro-esophageal reflux disease without esophagitis; J44.9 Chronic obstructive pulmonary disease, unspecified; I10 Essential (primary) hypertension; Z79.51 Long term (current) use of inhaled steroids; Z79.82 Long term (current) use of aspirin; Z79.891 Long term (current) use of opiate analgesic; Z79.899 Other long term (current) drug therapy; Z87.891 Personal history of nicotine dependence; Z88.6 Allergy status to analgesic agent

== ENCOUNTER → 2019-01-12 | Outpatient (CLI) | payer MEDICARE, MEDICAID ==
--- NOTE | 2019-01-12 15:21 | REP ---
Duplex extremity venous ultrasound: Left lower extremity. History: Left leg pain. Rule out DVT. Findings: The deep veins are anechoic and fully compressible from the groin to the popliteal fossa in the left lower extremity. Color flow imaging is homogeneous. Spectral Doppler interrogation demonstrates intact respiratory variation in flow and normal manual augmentation of flow. There is no evidence of deep vein thrombosis. There is a complex cystic area in the left knee posteriorly consistent with a Young's cyst measuring 7.6 x 9.3 x 1.1 cm. There are normal appearing lymph nodes in the left groin soft tissues. Impression: Young's cyst, otherwise negative left lower extremity duplex venous ultrasound. No evidence of deep vein thrombosis. Electronically Signed by Winstno Doe MD 01/12/2019 03:12 P
== END ==
LOC: M RAD 14:33
PROVIDERS: ATTEND Family Medicine
DX: M71.22 Synovial cyst of popliteal space [Baker], left knee (principal); M25.462 Effusion, left knee; R60.0 Localized edema
CPT/HCPCS: 93971; G0463

== ENCOUNTER 2019-02-23 11:21 | Emergency (ER) | payer MEDICARE, MEDICAID ==
[~2019-02-23] VITALS: Ht 154.9 cm; Wt 62.7 kg
[~2019-02-23 11:21] MED LIST changes: +BISO5TAB14 PO; -BISO5TAB5 PO
[2019-02-23] MEDS ORDERED: RANI300T (11:44)
[2019-02-23 12:19] LABS: BASO % 0.1 % (0.0-1.0); EOS % 0.5 % (0.0-3.0); HEMATOCRIT 32.4 % (36.0-47.0); HEMOGLOBIN 10.3 g/dl (12.0-15.5); LYMPH # 0.6 10^3/uL (1.5-4.5); LYMPH % 8.2 % (24.0-44.0); MEAN CORPUSCULAR HGB CONC 31.8 g/dl (32.0-36.5); MONO # 0.5 10^3/uL (0.0-0.8); MONO % 6.5 % (0.0-5.0); NEUTROPHILS # 6.5 10^3/uL (1.8-7.7); NEUTROPHILS % 84.3 % (36.0-66.0); PLATELET COUNT, AUTOMATED 275 10^3/uL (150-450); RED BLOOD COUNT 3.68 10^6/uL (4.00-5.40); WHITE BLOOD COUNT 7.7 10^3/uL (4.0-10.0)
[2019-02-23] MEDS ORDERED: ALBUTEROL SULFATE 2.5 MG/0.5 ML INH NEB SOLN INH ONE (12:30)
[2019-02-23] MEDS ORDERED: IPRATROPIUM 0.5MG/ALBUTEROL 2.5MG INH SOL UD 3ML (DUONEB)(J7620) NEB ONE (12:30)
[2019-02-23 12:46] LABS: ALBUMIN 2.9 GM/DL (3.2-5.2); BILIRUBIN,DIRECT 0.1 MG/DL (0.0-0.2); BILIRUBIN,TOTAL 0.4 MG/DL (0.2-1.0); CALCIUM LEVEL 8.9 MG/DL (8.5-10.1); CREATININE FOR GFR 1.55 MG/DL (0.55-1.30); GLOMERULAR FILTRATION RATE 36.6 (>51); POTASSIUM SERUM 3.7 MEQ/L (3.5-5.1)
--- NOTE | 2019-02-23 13:27 | REP ---
CHEST, PORTABLE: AP view of the chest is performed and compared to a prior study of 05/04/2018. Chronic pleural and parenchymal opacities are again seen in the right lung which appears stable. However there is a new ill-defined 2 cm opacity in the right upper lobe. The left lung remains clear. The heart is normal in size. The mediastinal silhouette is unchanged. Electronically Signed by Facundo Roland MD 02/24/2019 12:06 A
[2019-02-23 14:08] LABS: APPEARANCE, URINE HAZY (CLEAR); BACTERIA, URINE AUTO 1+ (NEGATIVE); BILIRUBIN, URINE AUTO NEGATIVE (NEGATIVE); BLOOD, URINE BLOOD 1+ (NEGATIVE); COLOR, URINE YELLOW (YELLOW); GLUCOSE, URINE (UA) AUTO NEGATIVE (NEGATIVE); KETONE, URINE AUTO NEGATIVE (NEGATIVE); LEUKOCYTE ESTERASE, URINE AUTO TRACE (NEGATIVE); MUCUS, URINE SMALL (NEGATIVE); NITRITE, URINE AUTO POSITIVE (NEGATIVE); PROTEIN, URINE AUTO NEGATIVE (NEGATIVE); RBC, URINE AUTO 2 /HPF (0-3); SPECIFIC GRAVITY URINE AUTO 1.013 (1.002-1.035); SQUAMOUS EPITHELIAL CELL UR AU 1 /HPF (0-6); UROBILINOGEN, URINE AUTO 0.2 mg/dL (0.0-2.0); WBC, URINE AUTO 15 /HPF (0-3)
--- NOTE | 2019-02-23 14:19 | REP ---
CT CHEST WITHOUT IV CONTRAST: CT chest performed without IV contrast. Sagittal and coronal reconstruction images are performed. Comparison made with prior study of 06/12/2018. There are scattered patchy infiltrates throughout the right upper lobe. Minor patchy infiltrate is seen in the right middle and lower lobes. There is focal irregular consolidative opacity inferomedially in the left lower lobe. This may all be related to pneumonia, but close followup is recommended. Otherwise there is scattered pleural and parenchymal scarring again seen predominantly in the apices and lower lobes. I do not see significant mediastinal or axillary adenopathy. 1 cm precarinal lymph node is present. There is mild atherosclerotic calcification of the thoracic aorta without aneurysm. The heart is not enlarged. There is no pleura or pericardial effusion. There is a small hiatal hernia. There are degenerative changes of the spine. IMPRESSION: Patchy parenchymal opacities bilaterally as discussed in detail above, may be related to pneumonia. Recommend close followup. Electronically Signed by Facundo Roland MD 02/24/2019 12:08 A
[2019-02-23] MEDS ORDERED: PREGABALIN 100 MG CAP (LYRICA) PO ONE (14:45)
[2019-02-23] MEDS ORDERED: PRED20TA PO (15:19)
[2019-02-23] MEDS ORDERED: CEFD300CAP PO (15:19)
[2019-02-23] MEDS ORDERED: AZIT-12 PO (15:19)
[2019-02-23] MEDS ORDERED: cefTRIAXone SOD 2 GM in D5W MINI-BAG PLUS 50 ML IV ONE (15:30)
[2019-02-23] MEDS ORDERED: predniSONE 20 MG TAB PO ONE (15:30)
[2019-02-23] MEDS ORDERED: AZITHROMYCIN 250 MG TAB PO ONE (15:30)
[2019-02-23] MEDS: ACETAMINOPHEN TAB 650MG DOSE (2X325MG) PO ONE ×2 (15:37→15:40)
[2019-02-23 16:16] VITALS: BP 129/65
--- NOTE | 2019-02-24 13:34 | ED PDOC ---
Post-Departure Follow-Up dr neri faxed formal report of ct chest for fu Laureen Bhatti MD Feb 24, 2019 13:34
== END 2019-02-23 16:21 | disposition home or self-care (01) ==
LOC: M ED 11:21 → EDBD 11:21 → M ED 16:21
DX: J18.9 Pneumonia, unspecified organism (principal); I10 Essential (primary) hypertension; J44.9 Chronic obstructive pulmonary disease, unspecified; K21.9 Gastro-esophageal reflux disease without esophagitis; M25.562 Pain in left knee; M50.30 Other cervical disc degeneration, unspecified cervical region; M48.00 Spinal stenosis, site unspecified; Z87.891 Personal history of nicotine dependence; Z88.6 Allergy status to analgesic agent; Z79.899 Other long term (current) drug therapy; Z79.51 Long term (current) use of inhaled steroids; Z79.82 Long term (current) use of aspirin
CPT/HCPCS: 36415; 71045; 71250; 80048; 80076; 81001; 83605; 85025; 87040; 87088; 87186; 87486; 87581; 87633; 87798; 93041; 94640; 94760; 96365; 99285; J0696

== ENCOUNTER → 2019-03-31 | Outpatient (CLI) | payer MEDICARE, MEDICAID ==
[~2019-03-31] MED LIST changes: +AZIT-12 PO; +CEFD300CAP PO; +OXYC10TA3; +PRED20TA PO; +PREG150C; +RANI300T
[2019-03-31 14:50] LABS: CALCIUM LEVEL 9.4 MG/DL (8.5-10.1); CREATININE FOR GFR 1.67 MG/DL (0.55-1.30); GLOMERULAR FILTRATION RATE 33.5 (>51); POTASSIUM SERUM 4.1 MEQ/L (3.5-5.1)
--- NOTE | 2019-03-31 16:50 | REP ---
URINARY BLADDER ULTRASOUND: Real-time sonographic evaluation of the urinary bladder was performed. Bladder measures 9.3 x 9.0 x 6.3 cm for a total volume of 344 mL. No mass or calculus is seen. There are bilateral ureteral jets in the urinary bladder with Doppler color evaluation. Postvoid residual is 72 mL which is 21% of the original volume. Debris is seen in the bladder. IMPRESSION :No mass or calculus. Mild debris is seen in the bladder. Postvoid residual is 72 mL, 21% of the original volume. Electronically Signed by Facundo Roland MD 04/01/2019 05:38 P
== END ==
LOC: M RAD 14:00
PROVIDERS: ATTEND Family Medicine
DX: R39.15 Urgency of urination (principal); N18.3 Chronic kidney disease, stage 3 (moderate)
CPT/HCPCS: 36415; 76857; 80048; 81002; G0463

== ENCOUNTER → 2019-04-01 | Outpatient (REF) | payer MEDICARE, MEDICAID ==
[~2019-04-01] MED LIST changes: -BISO5TAB14 PO; +BISO5TAB9 PO; -OXYC10TA3; -PREG150C
[2019-04-01 14:09] LABS: APPEARANCE, URINE CLEAR (CLEAR); BACTERIA, URINE AUTO NEGATIVE (NEGATIVE); BILIRUBIN, URINE AUTO NEGATIVE (NEGATIVE); BLOOD, URINE BLOOD 1+ (NEGATIVE); COLOR, URINE STRAW (YELLOW); GLUCOSE, URINE (UA) AUTO NEGATIVE (NEGATIVE); KETONE, URINE AUTO NEGATIVE (NEGATIVE); LEUKOCYTE ESTERASE, URINE AUTO NEGATIVE (NEGATIVE); NITRITE, URINE AUTO NEGATIVE (NEGATIVE); PROTEIN, URINE AUTO NEGATIVE (NEGATIVE); RBC, URINE AUTO 2 /HPF (0-3); SPECIFIC GRAVITY URINE AUTO 1.003 (1.002-1.035); SQUAMOUS EPITHELIAL CELL UR AU 0 /HPF (0-6); UROBILINOGEN, URINE AUTO 0.2 mg/dL (0.0-2.0); WBC, URINE AUTO 1 /HPF (0-3)
== END ==
LOC: M LAB REF 13:39
PROVIDERS: ATTEND Family Medicine
DX: R39.15 Urgency of urination (principal)

== ENCOUNTER → 2019-04-15 | Outpatient (CLI) | payer MEDICARE, MEDICAID ==
--- NOTE | 2019-04-16 07:18 | REP ---
Clinical: Follow up abnormal chest findings. Comparison: 02/23/2019, 03/22/2018, 01/27/2012 . Technique: Axial noncontrast images from the thoracic inlet to the upper abdomen with coronal and sagittal re-formations. Findings: Moderate COPD/emphysematous changes along with scattered mild bronchiectasis and fibro atelectatic changes are appreciated along with ill-defined nodular densities primarily noted in the right mid to upper lung zone and bilateral bases (left greater than right). Previously identified patchy infiltrates have essentially resolved. No effusion. No pneumothorax. Tracheobronchial tree is patent. No obvious adenopathy by noncontrast evaluation. Atherosclerotic changes to the thoracic aorta and coronary arteries noted without aneurysm or cardiomegaly. No pericardial effusion. Musculoskeletal structures without focal osseous abnormality. Limited upper abdomen demonstrates stable atrophic appearance to the right kidney and normal bilateral adrenal glands. Impression: 1. Previously noted elements of air space disease resolved. 2. Moderate emphysematous changes with scattered chronic-appearing fibroatelectatic changes as well as scattered nodular densities are again identified. Nodular components are not completely stable as compared to prior examinations and warrant 9-12 month follow-up examination. Electronically Signed by Donvoan Wu MD 04/16/2019 07:09 A
== END ==
LOC: M RAD 13:33
PROVIDERS: ATTEND Family Medicine
DX: R91.8 Other nonspecific abnormal finding of lung field (principal)

== ENCOUNTER → 2019-05-11 | Outpatient (CLI) | payer MEDICARE, MEDICAID ==
--- NOTE | 2019-05-12 01:56 | REP ---
Clinical: Pneumonia . Comparison: 02/23/2019 . Technique: PA and lateral. Findings: The mediastinum and cardiac silhouette are normal. The lung boston are clear and without acute consolidation, effusion, or pneumothorax. The skeletal structures are intact and normal. Impression: 1. No acute cardiopulmonary process. Electronically Signed by Donovan Wu MD 05/12/2019 01:47 A
== END ==
LOC: M WUC 16:01
PROVIDERS: ATTEND Internal Medicine Pulmonary Disease
DX: J18.9 Pneumonia, unspecified organism (principal)

== ENCOUNTER → 2019-05-24 | Outpatient (CLI) | payer MEDICARE, MEDICAID ==
--- NOTE | 2019-05-24 13:34 | REP ---
Clinical: Chronic stage III renal disease. Technique: Real time gusman scale and color evaluation using curved array transducer. Findings: The right kidney is atrophic and hyperechoic without hydronephrosis, nephrolithiasis, cystic or renal mass lesion. Left kidney is relatively normal in size, echotexture and appearance without hydronephrosis, nephrolithiasis, cystic or renal mass lesion. Right kidney measures 7.3 x 3 for 1 x 2.5 cm. Left kidney measures 9.9 x 5.5 x 4.7 cm. Bladder is unremarkable and bilateral ureteral jets are noted. Impression: 1. Atrophic appearance to the right kidney. Electronically Signed by Donovan Wu MD 05/24/2019 01:26 P
== END ==
LOC: M RAD 12:57
PROVIDERS: ATTEND Internal Medicine Nephrology
DX: N18.3 Chronic kidney disease, stage 3 (moderate) (principal); I12.9 Hypertensive chronic kidney disease with stage 1 through stage 4 chronic kidney disease, or unspecified chronic kidney disease

== ENCOUNTER 2019-06-24 00:15 | Emergency (ER) | payer MEDICARE, MEDICAID ==
[~2019-06-24] VITALS: Ht 152.4 cm; Wt 68.2 kg
[2019-06-24] MEDS ORDERED: OXYC10TA3 (00:25)
[2019-06-24] MEDS ORDERED: PREG150C (00:25)
[2019-06-24 01:07] LABS: INFLUENZA A AMPLIFICATION NEGATIVE (NEGATIVE); INFLUENZA B AMPLIFICATION NEGATIVE (NEGATIVE)
[2019-06-24] MEDS ORDERED: ACETAMINOPHEN 500 MG TAB PO ONE (03:15)
[2019-06-24] MEDS ORDERED: methylPREDNISolone INJ 125 MG/2 ML VIAL (J2930) IM ONE (03:15)
[2019-06-24] MEDS ORDERED: PRED20TA PO (03:19)
[2019-06-24 03:23] VITALS: BP 132/76
--- NOTE | 2019-06-24 07:37 | REP ---
Clinical: Cough and fever . Comparison: 05/11/2019 . Technique: PA and lateral. Findings: The mediastinum and cardiac silhouette are normal. The lung boston are clear and without acute consolidation, effusion, or pneumothorax. The skeletal structures are intact and normal. Impression: 1. No acute cardiopulmonary process. Electronically Signed by Donovan Wu MD 06/24/2019 07:28 A
== END 2019-06-24 03:30 | disposition home or self-care (01) ==
LOC: M ED 00:15
DX: J06.9 Acute upper respiratory infection, unspecified (principal); B34.9 Viral infection, unspecified; J20.9 Acute bronchitis, unspecified; I10 Essential (primary) hypertension; J44.9 Chronic obstructive pulmonary disease, unspecified; G89.29 Other chronic pain; M54.9 Dorsalgia, unspecified; F17.200 Nicotine dependence, unspecified, uncomplicated; Z79.82 Long term (current) use of aspirin; Z79.899 Other long term (current) drug therapy; Z88.6 Allergy status to analgesic agent
CPT/HCPCS: 71046; 87502; 96372; 99283; J2930

== ENCOUNTER → 2019-07-15 | Outpatient (CLI) | payer MEDICARE, MEDICAID ==
[~2019-07-15] MED LIST changes: +BISO5TAB14 PO; -BISO5TAB9 PO; +GASTROGRAFIN SOLUTION 30ML (Q9963) As Ordered ONE; +OXYC10TA3; +PREG150C
--- NOTE | 2019-07-15 17:26 | REP ---
CT abdomen and pelvis without IV but with oral contrast: History: Unspecified renal colic. Right lower quadrant pain. Pain in right groin with possible right inguinal hernia. Low back pain radiating to the right lower quadrant. Comparison CT study 06/12/2018. CT findings: Preliminary digital card processing clerk radiograph is unremarkable. There is moderate stool. The lung bases are clear on axial CT images except for some mild linear fibrosis. No pleural effusion is seen. The liver and the spleen are normal in size and homogeneous in texture. No adrenal abnormality is observed. There is no abnormality seen in the gallbladder or pancreas. There is marked atrophy of the right kidney as previously noted. There is no evidence of hydronephrosis or intrarenal calculus on either side. Heavy vascular calcification is seen in the aorta and at the origins of the renal arteries bilaterally. No retroperitoneal mass or adenopathy is observed. There is moderate stool throughout the large intestine in the upper abdomen. No mesenteric mass or adenopathy is observed. The appendix is surgically absent. No uterine abnormality is seen. No ovarian mass or cyst is observed. Urinary bladder is unremarkable. No abdominal wall defect is seen. There is an interval nondisplaced fracture of the inferior pubic ramus on the right side with some adjacent periosteal reaction. This is not present on June 12, 2018. No other fracture is seen. No bony destructive lesion is appreciated. Impression: Significant atrophy right kidney. Heavily calcified renal arteries bilaterally. Prior appendectomy. No acute intra-abdominal abnormality. No urinary tract calculus or hydronephrosis seen. There is a healing fracture of the right inferior pubic ramus with associated periosteal callus formation. Electronically Signed by Winston Doe MD 07/16/2019 08:09 A
== END ==
LOC: M RAD 14:35
PROVIDERS: ATTEND Nurse Practitioner Family
DX: N23 Unspecified renal colic (principal); N26.1 Atrophy of kidney (terminal); I70.1 Atherosclerosis of renal artery; S32.501D Unspecified fracture of right pubis, subsequent encounter for fracture with routine healing; X58.XXXD Exposure to other specified factors, subsequent encounter; Y92.9 Unspecified place or not applicable
CPT/HCPCS: 74176; Q9963

== ENCOUNTER → 2019-10-06 | Outpatient (REF) | payer MEDICARE, MEDICAID ==
[~2019-10-06] MED LIST changes: -GASTROGRAFIN SOLUTION 30ML (Q9963) As Ordered ONE
[2019-10-06 13:42] LABS: BODY FLUID RHEUMATOID SCREEN NEGATIVE (NEGATIVE)
[2019-10-06 13:43] LABS: MUCIN CLOT TEST 4+ (4+); SOURCE, BODY FLUID LFT KNEE; SYNOVIAL FLUID COLOR PALE YELLOW (YELLOW)
[2019-10-06 14:09] LABS: SOURCE, BODY FLUID GLUCOSE LFT KNEE; SOURCE, BODY FLUID URIC ACID LFT KNEE; URIC ACID, BODY FLUID 7.8 MG/DL (NOT ESTABLISHED)
[2019-10-06 14:17] LABS: CRYSTALS, BODY FLUID NONE SEEN (NONE SEEN); SOURCE, BODY FLUID CRYSTALS LFT KNEE
== END ==
LOC: M LAB REF 12:54
PROVIDERS: ATTEND Orthopaedic Surgery
DX: M25.462 Effusion, left knee (principal)

== ENCOUNTER → 2019-10-11 | Outpatient (CLI) | payer MEDICARE, MEDICAID ==
[2019-10-11 20:11] LABS: BASO % 0.4 % (0.0-1.0); EOS # 0.2 10^3/uL (0.0-0.5); HEMATOCRIT 39.7 % (36.0-47.0); HEMOGLOBIN 12.8 g/dl (12.0-15.5); LYMPH # 1.1 10^3/uL (1.5-5.0); LYMPH % 19.7 % (24.0-44.0); MEAN CORPUSCULAR HEMOGLOBIN 29.4 pg (27.0-33.0); MEAN CORPUSCULAR HGB CONC 32.2 g/dl (32.0-36.5); MEAN CORPUSCULAR VOLUME 91.3 fl (80.0-96.0); MONO # 0.4 10^3/uL (0.0-0.8); NEUTROPHILS # 3.7 10^3/uL (1.5-8.5); NEUTROPHILS % 67.7 % (36.0-66.0); PLATELET COUNT, AUTOMATED 267 10^3/uL (150-450); RED BLOOD COUNT 4.35 10^6/uL (4.00-5.40); WHITE BLOOD COUNT 5.5 10^3/uL (4.0-10.0)
[2019-10-11 20:18] LABS: C REACTIVE PROTEIN QUANTITATIV 1.07 MG/DL (0.00-0.30); RHEUMATOID FACTOR QUANT < 10.0 IU/ML (<15.0); URIC ACID 7.5 MG/DL (2.6-6.0)
[2019-10-11 20:35] LABS: ERYTHROCYTE SEDIMENTATION RATE 30 mm/hr (0-30)
== END ==
LOC: M WUC 16:05
PROVIDERS: ATTEND Orthopaedic Surgery
DX: M25.462 Effusion, left knee (principal)

== ENCOUNTER → 2019-10-29 | Outpatient (REF) | payer MEDICARE, MEDICAID | LOC: M SFHCPLAZ 14:51 | PROVIDERS: ATTEND Family Medicine | DX: R30.0 Dysuria (principal) | CPT/HCPCS: 81002; 87086; G0463 ==

== ENCOUNTER → 2019-11-11 | Outpatient (CLI) | payer MEDICARE, MEDICAID | LOC: M RAD 12:56 | PROVIDERS: ATTEND Internal Medicine Pulmonary Disease | DX: R91.8 Other nonspecific abnormal finding of lung field (principal) ==

== ENCOUNTER → 2019-12-24 | Outpatient (CLI) | payer MEDICARE, MEDICAID ==
[2019-12-24 15:23] LABS: CALCIUM LEVEL 9.6 MG/DL (8.5-10.1); CREATININE FOR GFR 1.82 MG/DL (0.55-1.30); GLOMERULAR FILTRATION RATE 30.4 (>51); POTASSIUM SERUM 4.1 MEQ/L (3.5-5.1)
--- NOTE | 2019-12-24 17:34 | ECGEPIP ---
[facility] Test Date: 2019-12-24 Pat Name: JOHN JONES Department: Room: - Gender: Female Food Manager: BRONWYN : 1960 Requested By: Maryam Cisneros @ [facility] Order Number: [id number] Reading MD: Wally Blanco Measurements Intervals [place] Rate: 61 P: 74 MT: 181 QRS: 59 QRSD: 89 T: 66 QT: 411 QTc: 416 Interpretive Statements SINUS RHYTHM BORDERLINE LEFT ATRIAL ABNORMALITY Compared to prior tracings(2) in the system, no significant changes Electronically Signed on 12-24-2019 17:34:32 EDT by Wally Blanco
== END ==
LOC: M LAB 14:25
PROVIDERS: ATTEND Orthopaedic Surgery
DX: Z01.810 Encounter for preprocedural cardiovascular examination (principal); Z79.899 Other long term (current) drug therapy

== ENCOUNTER → 2019-12-25 | Outpatient (CLI) | payer MEDICARE, MEDICAID | LOC: M LABSMTC 09:44 | PROVIDERS: ATTEND Orthopaedic Surgery | DX: Z03.818 Encounter for observation for suspected exposure to other biological agents ruled out (principal); Z11.59 Encounter for screening for other viral diseases ==

== ENCOUNTER → 2020-04-17 | Outpatient (CLI) | payer MEDICARE, MEDICAID ==
[~2020-04-17] MED LIST changes: -AMLO10TA5 PO; +AMLO1TAB25 PO; +PANT40TA29 PO; -PANT40TA3 PO
[2020-04-17 20:04] LABS: ALBUMIN 3.5 GM/DL (3.2-5.2); PERCENT SATURATION 12.6 % (13.2-45.0)
== END ==
LOC: M WUC 15:16
PROVIDERS: ATTEND Orthopaedic Surgery
DX: Z01.818 Encounter for other preprocedural examination (principal); M17.10 Unilateral primary osteoarthritis, unspecified knee; M25.562 Pain in left knee

== ENCOUNTER → 2020-04-27 | Outpatient (CLI) | payer MEDICARE, MEDICAID ==
--- NOTE | 2020-04-27 17:31 | REP ---
INDICATION: COPD, ABNORMAL FINFING IN LUNG FIELD COMPARISON: 06/24/2019 TECHNIQUE: PA and lateral. FINDINGS: The mediastinum and cardiac silhouette are normal. The lung boston demonstrate mild emphysematous changes and minimal basilar scarring without acute consolidation, effusion, or pneumothorax. The skeletal structures are intact and normal. IMPRESSION: No acute cardiopulmonary process. <Electronically signed by Donovan Wu > 04/27/20 [id number]
== END ==
LOC: M WUC 17:17
PROVIDERS: ATTEND Internal Medicine Pulmonary Disease
DX: J44.9 Chronic obstructive pulmonary disease, unspecified (principal); R91.8 Other nonspecific abnormal finding of lung field

== ENCOUNTER → 2020-06-16 | Outpatient (CLI) | payer MEDICARE, MEDICAID ==
--- NOTE | 2020-06-16 15:11 | REP ---
INDICATION: COUGH COMPARISON: 04/27/2020. TECHNIQUE: PA/Lateral FINDINGS: Lungs: Mild stable bibasilar interstitial fibrotic change is noted. No superimposed acute infiltrate is seen. There is mild biapical pleural scarring. Heart: Normal in size. Mediastinum: Mediastinal silhouette unremarkable. Pleural angles: Unremarkable.. Bones and soft tissues: There are mild degenerative changes of the spine without compression deformity. IMPRESSION: No acute pulmonary disease. Stable chronic changes. <Electronically signed by Facundo Roland > 06/16/20 [id number]
== END ==
LOC: M WUC 14:43
PROVIDERS: ATTEND Family Medicine
DX: R05 Cough (principal)
CPT/HCPCS: 71046; G0463

== ENCOUNTER → 2020-07-31 | Outpatient (CLI) | payer MEDICARE, MEDICAID ==
[2020-07-31 15:59] LABS: HEMATOCRIT 39.3 % (36.0-47.0); HEMOGLOBIN 12.1 g/dl (12.0-15.5); MEAN CORPUSCULAR HEMOGLOBIN 26.4 pg (27.0-33.0); MEAN CORPUSCULAR HGB CONC 30.8 g/dl (32.0-36.5); MEAN CORPUSCULAR VOLUME 85.8 fl (80.0-96.0); PLATELET COUNT, AUTOMATED 314 10^3/uL (150-450); RED BLOOD COUNT 4.58 10^6/uL (4.00-5.40); WHITE BLOOD COUNT 4.2 10^3/uL (4.0-10.0)
[2020-07-31 16:18] LABS: ALBUMIN 3.8 GM/DL (3.2-5.2); BILIRUBIN,TOTAL 0.3 MG/DL (0.2-1.0); CALCIUM LEVEL 9.8 MG/DL (8.5-10.1); CHOLESTEROL RISK RATIO 4.09 (<5); CREATININE FOR GFR 2.33 MG/DL (0.55-1.30); GLOMERULAR FILTRATION RATE 22.8 (>51); POTASSIUM SERUM 4.1 MEQ/L (3.5-5.1); THYROID STIMULATING HORMONE 6.45 uIU/ML (0.358-3.740); TOTAL PROTEIN 7.4 GM/DL (6.4-8.2)
== END ==
LOC: M WUC 12:18
PROVIDERS: ATTEND Family Medicine
DX: Z00.01 Encounter for general adult medical examination with abnormal findings (principal); I10 Essential (primary) hypertension; Z13.1 Encounter for screening for diabetes mellitus; E78.5 Hyperlipidemia, unspecified

== ENCOUNTER → 2020-08-07 | Outpatient (CLI) | payer MEDICARE, MEDICAID ==
[2020-08-07 19:31] LABS: CALCIUM LEVEL 9.8 MG/DL (8.5-10.1); CREATININE FOR GFR 1.82 MG/DL (0.55-1.30); GLOMERULAR FILTRATION RATE 30.3 (>51); POTASSIUM SERUM 4.1 MEQ/L (3.5-5.1)
== END ==
LOC: M WUC 15:09
PROVIDERS: ATTEND Family Medicine
DX: N17.9 Acute kidney failure, unspecified (principal)

== ENCOUNTER → 2020-09-01 | Outpatient (CLI) | payer MEDICARE, MEDICAID ==
--- NOTE | 2020-09-01 14:40 | REPMRS ---
Patient History The patient states she has not had a clinical breast exam in over a year. No known family history of cancer. 3D TOMOSYNTHESIS WAS PERFORMED. The [facility] lifetime risk for breast cancer is 5.7%. Volpara breast density b. Digital Woman Screen Mammo: September 01, 2020 - Exam #: [id number] Bilateral CC and MLO view(s) were taken. Technologist: Maria Del Carmen Terrazas, Technologist Prior study comparison: September 16, 2018, bilateral digital woman screen mammo performed at [facility]. October 04, 2016, digital woman screen mammo performed at [facility]. FINDINGS: There are scattered fibroglandular densities. There has been no change in the appearance of the mammogram from the prior studies. There is a mild amount of residual fibroglandular tissue which is fairly symmetric. There is no interval development of dominant mass, architectural distortion, or clustered microcalcification suggestive of malignancy. Assessment: BI-RADS/ACR category 1 mammogram. Negative Mammogram. Recommendation Routine screening mammogram in 1 year (for women over age 40). This mammogram was interpreted with the aid of an FDA-approved computer-aided dectection system. Electronically Signed By: Facundo Roland MD 09/01/20 1273
--- NOTE | 2020-09-01 16:26 | DEXAMM ---
INDICATION: Z13.820 SCR FOR OSTEOPOROSIS. COMPARISON: 01/03/2017. TECHNIQUE: Bone density was measured using dual-energy x-ray absorptiometry (DEXA). FINDINGS: AP SPINE L1-L4 BMD 1.115 g/cm2 Young Adult T-Score -0.6 Age Matched Z-Score 0.5. LT FEMUR, TOTAL BMD 0.877 g/cm2 Young Adult T-Score -1.0 Age Matched Z-Score -0.1. LT NECK BMD 0.778 g/cm2 Young Adult T-Score -1.9 Age Matched Z-Score -0.7. RT FEMUR, TOTAL BMD 0.860 g/cm2 Young Adult T-Score -1.2 Age Matched Z-Score -0.3. RT NECK BMD 0.840 g/cm2 Young Adult T-Score -1.4 Age Matched Z-Score for -0.2. IMPRESSION: There is normal bone density of the spine. There is low bone density of the left hip. There is low bone density of the right hip. The density of the spine has increased 7.4% since the initial exam on 01/03/2017. The density of the left hip has increased 9.1% since initial exam on 01/03/2017. The density of the right hip has increased 8.9% since the initial exam on 01/03/2017. FOLLOW-UP: Recommendation for the next bone density exam: 2 years. <Electronically signed by Facundo Roland > 09/01/20 [id number]
== END ==
LOC: M WHC 13:01
PROVIDERS: ATTEND Family Medicine
DX: Z12.31 Encounter for screening mammogram for malignant neoplasm of breast (principal); Z13.820 Encounter for screening for osteoporosis; M85.851 Other specified disorders of bone density and structure, right thigh; M85.852 Other specified disorders of bone density and structure, left thigh

== ENCOUNTER → 2020-09-04 | Outpatient (CLI) | payer MEDICARE, MEDICAID ==
[~2020-09-04] MED LIST changes: +GASTROGRAFIN SOLUTION 30ML (Q9963) As Ordered ONE
--- NOTE | 2020-09-04 13:49 | REP ---
INDICATION: ENCOUNTER SCREENING FOR LUNG CA. COMPARISON: Multiple comparison chest CT studies are reviewed the most recent of which is from November 11, 2019, and the most remote January 01, 2018.. TECHNIQUE: Low-dose lung cancer screening study. 3 mm axial images are provided at lung only windows. FINDINGS: There are mild emphysematous changes again noted in the upper lobes. Biapical pleuroparenchymal fibrosis is seen stable since the 2018 prior studies. There are stable areas of fibrosis in the right upper lobe unchanged. There are 2 benign stable perifissural nodules in the right lower lobe adjacent 1 another along the major fissure unchanged from January 01, 2018. There is a new 3 mm peribronchovascular noncalcified nodule in the left upper lobe projecting on page 12/17/1998 in series 201 of today's study. A similar larger nodule seen in the right upper lobe on April 15, 2019 has resolved. No other new nodule is appreciated. IMPRESSION: Lung RADS category 2 findings. Repeat screening study recommended in 1 year. <Electronically signed by Rasheed Doe > 09/04/20 [id number]
== END ==
LOC: M RAD 13:05
PROVIDERS: ATTEND Family Medicine
DX: Z12.2 Encounter for screening for malignant neoplasm of respiratory organs (principal); Z87.891 Personal history of nicotine dependence

== ENCOUNTER → 2020-10-18 | Outpatient (CLI) | payer MEDICARE, MEDICAID ==
[~2020-10-18] MED LIST changes: -GASTROGRAFIN SOLUTION 30ML (Q9963) As Ordered ONE
--- NOTE | 2020-10-18 15:16 | REP ---
INDICATION: DYSPNEA COMPARISON: 06/16/2020 TECHNIQUE: PA and lateral. FINDINGS: The mediastinum and cardiac silhouette are normal. The lung [place] demonstrate stable chronic changes without acute consolidation, effusion, or pneumothorax. The skeletal structures are intact and normal. IMPRESSION: No acute cardiopulmonary process. <Electronically signed by Donovan Wu > 10/18/20 [id number]
== END ==
LOC: M WUC 15:00
PROVIDERS: ATTEND Nurse Practitioner Family
DX: R06.00 Dyspnea, unspecified (principal); R60.0 Localized edema

== ENCOUNTER → 2020-12-15 | Outpatient (REF) | payer MEDICARE, MEDICAID | LOC: M SFHCPLAZ 11:19 | PROVIDERS: ATTEND Family Medicine | DX: E03.9 Hypothyroidism, unspecified (principal) | CPT/HCPCS: 36415; 84443; G0463 ==

== ENCOUNTER → 2021-01-15 | Outpatient (CLI) | payer MEDICARE, MEDICAID ==
[2021-01-15 12:06] LABS: HEMATOCRIT 38.7 % (36.0-47.0); HEMOGLOBIN 12.2 g/dl (12.0-15.5); MEAN CORPUSCULAR HEMOGLOBIN 26.2 pg (27.0-33.0); MEAN CORPUSCULAR HGB CONC 31.5 g/dl (32.0-36.5); MEAN CORPUSCULAR VOLUME 83.2 fl (80.0-96.0); PLATELET COUNT, AUTOMATED 301 10^3/uL (150-450); RED BLOOD COUNT 4.65 10^6/uL (4.00-5.40); WHITE BLOOD COUNT 4.4 10^3/uL (4.0-10.0)
== END ==
LOC: M WUC 11:20
PROVIDERS: ATTEND Internal Medicine Cardiovascular Disease
DX: R06.00 Dyspnea, unspecified (principal)

== ENCOUNTER → 2021-01-24 | Outpatient (REF) | payer MEDICARE, MEDICAID | LOC: M SFHCWAGY 18:19 | PROVIDERS: ATTEND Nurse Practitioner Women's Health | DX: Z12.4 Encounter for screening for malignant neoplasm of cervix (principal); N95.2 Postmenopausal atrophic vaginitis | CPT/HCPCS: 87624; G0101; G0123 ==

== ENCOUNTER → 2021-02-21 | Outpatient (CLI) | payer MEDICARE, MEDICAID ==
[2021-02-21 20:02] LABS: ALBUMIN 3.5 GM/DL (3.2-5.2); PERCENT SATURATION 18.9 % (13.2-45.0)
== END ==
LOC: M WUC 16:04
PROVIDERS: ATTEND Family Medicine
DX: Z01.818 Encounter for other preprocedural examination (principal); M17.10 Unilateral primary osteoarthritis, unspecified knee; M25.561 Pain in right knee

== ENCOUNTER → 2021-02-28 | Outpatient (REF) | payer MEDICARE, MEDICAID | LOC: M LAB REF 17:18 | PROVIDERS: ATTEND Nurse Practitioner Family | DX: E83.42 Hypomagnesemia (principal) ==

== ENCOUNTER → 2021-04-25 | Outpatient (REF) | payer MEDICARE, MEDICAID ==
[~2021-04-25] MED LIST changes: -CYMB60CA3 PO; +CYMB60CA4 PO
[2021-05-01 17:07] LABS: CREATININE, URINE 16.6 mg/dL (20.0-300.0); OPIATES, URINE Negative ng/mL (Cutoff=300); OXYCODONE URINE Positive (.); OXYCODONE, URINE CONFIRM 850 ng/mL (Cutoff=100); OXYCODONE/OXYMORPH, URINE Positive (Cutoff=100); OXYMORPHONE, URINE Positive (.); OXYMORPHONE, URINE CONFIRM 1716 ng/mL (Cutoff=100)
== END ==
LOC: M SFHCPLAZ 17:17
PROVIDERS: ATTEND Student in an Organized Health Care Education/Training Program
DX: G89.29 Other chronic pain (principal); Z79.899 Other long term (current) drug therapy
CPT/HCPCS: 80307; G0463

== ENCOUNTER → 2021-04-27 | Outpatient (CLI) | payer MEDICARE, MEDICAID | LOC: M WUC 14:00 | PROVIDERS: ATTEND Student in an Organized Health Care Education/Training Program | DX: E03.9 Hypothyroidism, unspecified (principal) ==

== ENCOUNTER → 2021-05-07 | Outpatient (REF) | payer MEDICARE, MEDICAID | LOC: M SFHCPLAZ 11:12 | PROVIDERS: ATTEND Family Medicine | DX: Z01.818 Encounter for other preprocedural examination (principal); Z79.899 Other long term (current) drug therapy ==

== ENCOUNTER → 2021-05-10 | Outpatient (CLI) | payer MEDICARE, MEDICAID ==
[2021-05-10 13:02] LABS: BASO # 0.1 10^3/uL (0.0-0.2); BASO % 1.4 % (0.0-1.0); EOS # 0.3 10^3/uL (0.0-0.5); EOS % 7.3 % (0.0-3.0); HEMATOCRIT 40.8 % (36.0-47.0); HEMOGLOBIN 13.4 g/dl (12.0-15.5); LYMPH # 1.7 10^3/uL (1.5-5.0); MEAN CORPUSCULAR HEMOGLOBIN 27.9 pg (27.0-33.0); MEAN CORPUSCULAR HGB CONC 32.8 g/dl (32.0-36.5); MEAN CORPUSCULAR VOLUME 84.8 fl (80.0-96.0); MONO # 0.4 10^3/uL (0.0-0.8); MONO % 9.9 % (2.0-8.0); NEUTROPHILS # 1.2 10^3/uL (1.5-8.5); NEUTROPHILS % 34.1 % (36.0-66.0); PLATELET COUNT, AUTOMATED 296 10^3/uL (150-450); RED BLOOD COUNT 4.81 10^6/uL (4.00-5.40); WHITE BLOOD COUNT 3.6 10^3/uL (4.0-10.0)
[2021-05-10 13:12] LABS: INR 0.87; PROTHROMBIN TIME 12.3 SECONDS (12.7-14.5)
[2021-05-10 13:13] LABS: PARTIAL THROMBOPLASTIN TIME 33.5 SECONDS (25.9-37.0)
[2021-05-10 14:28] LABS: BILIRUBIN,TOTAL 0.3 MG/DL (0.2-1.0); CALCIUM LEVEL 10.2 MG/DL (8.8-10.2); CREATININE FOR GFR 1.72 MG/DL (0.55-1.30); GLOMERULAR FILTRATION RATE 32.2 (>45); POTASSIUM SERUM 4.6 MEQ/L (3.5-5.1); TOTAL PROTEIN 7.7 GM/DL (6.4-8.2)
[2021-05-10 20:29] LABS: APPEARANCE, URINE CLEAR (CLEAR); BACTERIA, URINE AUTO NEGATIVE (NEGATIVE); BILIRUBIN, URINE AUTO NEGATIVE (NEGATIVE); BLOOD, URINE BLOOD NEGATIVE (NEGATIVE); COLOR, URINE STRAW (YELLOW); GLUCOSE, URINE (UA) AUTO NEGATIVE (NEGATIVE); KETONE, URINE AUTO NEGATIVE (NEGATIVE); LEUKOCYTE ESTERASE, URINE AUTO NEGATIVE (NEGATIVE); NITRITE, URINE AUTO NEGATIVE (NEGATIVE); PROTEIN, URINE AUTO NEGATIVE (NEGATIVE); RBC, URINE AUTO 0 /HPF (0-3); SPECIFIC GRAVITY URINE AUTO 1.005 (1.002-1.035); SQUAMOUS EPITHELIAL CELL UR AU 1 /HPF (0-6); UROBILINOGEN, URINE AUTO 0.2 mg/dL (0.0-2.0); WBC, URINE AUTO 0 /HPF (0-3)
== END ==
LOC: M WUC 09:10
PROVIDERS: ATTEND Student in an Organized Health Care Education/Training Program
DX: Z01.812 Encounter for preprocedural laboratory examination (principal); M17.11 Unilateral primary osteoarthritis, right knee; Z79.82 Long term (current) use of aspirin; Z79.899 Other long term (current) drug therapy

== ENCOUNTER → 2021-08-13 | Outpatient (CLI) | payer MEDICARE, MEDICAID | LOC: M PLAIMG 10:47 | PROVIDERS: ATTEND Orthopaedic Surgery | DX: M47.892 Other spondylosis, cervical region (principal); M25.78 Osteophyte, vertebrae; M48.02 Spinal stenosis, cervical region ==

== ENCOUNTER → 2021-08-22 | Outpatient (CLI) | payer MEDICARE, MEDICAID ==
[2021-08-22 19:49] LABS: FREE T4 0.86 NG/DL (0.76-1.46); THYROID STIMULATING HORMONE 4.02 uIU/ML (0.358-3.740)
[2021-08-22 19:52] LABS: THYROID PEROXIDASE ANTIBODY 41.3 U/ML (<60.0)
== END ==
LOC: M WUC 15:20
PROVIDERS: ATTEND Student in an Organized Health Care Education/Training Program
DX: E03.9 Hypothyroidism, unspecified (principal)

== ENCOUNTER → 2021-09-24 | Outpatient (REF) | payer MEDICARE, MEDICAID | LOC: M SFHCPLAZ 15:50 | PROVIDERS: ATTEND Family Medicine | DX: E03.9 Hypothyroidism, unspecified (principal) ==

== ENCOUNTER → 2021-10-02 | Outpatient (CLI) | payer MEDICARE, MEDICAID | LOC: M RAD 13:39 | PROVIDERS: ATTEND Student in an Organized Health Care Education/Training Program | DX: Z12.2 Encounter for screening for malignant neoplasm of respiratory organs (principal); Z87.891 Personal history of nicotine dependence; J43.9 Emphysema, unspecified; R91.8 Other nonspecific abnormal finding of lung field ==

== ENCOUNTER 2021-10-04 09:55 | Emergency (ER) | payer MEDICARE, MEDICAID ==
[~2021-10-04] VITALS: Ht 152.4 cm; Wt 68.1 kg
[~2021-10-04 09:55] MED LIST changes: -ANOR1AER; -DULO1CAP6; -EUTH50TA
[2021-10-04] MEDS ORDERED: DULO1CAP6 (10:05)
[2021-10-04] MEDS ORDERED: ANOR1AER (10:05)
[2021-10-04] MEDS ORDERED: EUTH50TA (10:05)
[2021-10-04 12:06] LABS: HEMATOCRIT 37.2 % (36.0-47.0); HEMOGLOBIN 12.2 g/dl (12.0-15.5); MEAN CORPUSCULAR HEMOGLOBIN 27.7 pg (27.0-33.0); MEAN CORPUSCULAR HGB CONC 32.8 g/dl (32.0-36.5); MEAN CORPUSCULAR VOLUME 84.4 fl (80.0-96.0); PLATELET COUNT, AUTOMATED 238 10^3/uL (150-450); RED BLOOD COUNT 4.41 10^6/uL (4.00-5.40); WHITE BLOOD COUNT 4.3 10^3/uL (4.0-10.0)
[2021-10-04 12:13] LABS: ALBUMIN 3.7 GM/DL (3.2-5.2); BILIRUBIN,TOTAL 0.3 MG/DL (0.2-1.0); CALCIUM LEVEL 9.5 MG/DL (8.8-10.2); CREATININE FOR GFR 1.75 MG/DL (0.55-1.30); GLOMERULAR FILTRATION RATE 31.6 (>45); POTASSIUM SERUM 4.1 MEQ/L (3.5-5.1); TOTAL PROTEIN 6.9 GM/DL (6.4-8.2)
[2021-10-04 12:17] LABS: INR 0.86; PROTHROMBIN TIME 12.1 SECONDS (12.7-14.5)
[2021-10-04 13:10] VITALS: BP 160/82
== END 2021-10-04 13:11 | disposition home or self-care (01) ==
LOC: M ED 09:55
DX: K59.00 Constipation, unspecified (principal); E78.00 Pure hypercholesterolemia, unspecified; I10 Essential (primary) hypertension; J44.9 Chronic obstructive pulmonary disease, unspecified; Z87.01 Personal history of pneumonia (recurrent); K21.9 Gastro-esophageal reflux disease without esophagitis; E03.9 Hypothyroidism, unspecified; M54.2 Cervicalgia; M54.9 Dorsalgia, unspecified; F41.9 Anxiety disorder, unspecified; F32.9 Major depressive disorder, single episode, unspecified; Z79.82 Long term (current) use of aspirin; Z79.899 Other long term (current) drug therapy; Z88.6 Allergy status to analgesic agent

== ENCOUNTER → 2021-10-04 | Outpatient (CLI) | payer MEDICARE, MEDICAID ==
[~2021-10-04] MED LIST changes: +ANOR1AER; +DULO1CAP6; +EUTH50TA
[2021-10-04 11:25] LABS: ALBUMIN 3.7 GM/DL (3.2-5.2); BILIRUBIN,TOTAL 0.3 MG/DL (0.2-1.0); CALCIUM LEVEL 9.6 MG/DL (8.8-10.2); CREATININE FOR GFR 1.8 MG/DL (0.55-1.30); FREE T4 0.91 NG/DL (0.76-1.46); GLOMERULAR FILTRATION RATE 30.6 (>45); POTASSIUM SERUM 4.3 MEQ/L (3.5-5.1); THYROID STIMULATING HORMONE 8.54 uIU/ML (0.358-3.740); TOTAL PROTEIN 6.6 GM/DL (6.4-8.2)
== END ==
LOC: M LAB 09:03
PROVIDERS: ATTEND Student in an Organized Health Care Education/Training Program
DX: M54.41 Lumbago with sciatica, right side (principal); E03.9 Hypothyroidism, unspecified

== ENCOUNTER → 2021-12-17 | Outpatient (CLI) | payer MEDICARE, MEDICAID ==
[~2021-12-17] MED LIST changes: +ANOR1AER; +DULO1CAP6; +EUTH50TA
[2021-12-17 15:40] LABS: THYROID STIMULATING HORMONE 0.214 uIU/ML (0.358-3.740)
[2021-12-18 13:53] LABS: CALCIUM LEVEL 9.4 MG/DL (8.8-10.2); CREATININE FOR GFR 1.4 MG/DL (0.55-1.30); GLOMERULAR FILTRATION RATE 40.8 (>45); POTASSIUM SERUM 4.7 MEQ/L (3.5-5.1)
== END ==
LOC: M WUC 14:04
PROVIDERS: ATTEND Student in an Organized Health Care Education/Training Program
DX: E03.8 Other specified hypothyroidism (principal)

== ENCOUNTER → 2022-05-08 | Outpatient (CLI) | payer MEDICARE, MEDICAID ==
[2022-05-08 17:09] LABS: CALCIUM LEVEL 9.7 MG/DL (8.8-10.2); CREATININE FOR GFR 1.52 MG/DL (0.55-1.30); POTASSIUM SERUM 4.3 MEQ/L (3.5-5.1); THYROID STIMULATING HORMONE 3.72 uIU/ML (0.358-3.740)
== END ==
LOC: M WUC 13:09
PROVIDERS: ATTEND Student in an Organized Health Care Education/Training Program
DX: E03.8 Other specified hypothyroidism (principal)

== ENCOUNTER → 2022-09-19 | Outpatient (CLI) | payer MEDICARE, MEDICAID | LOC: M RAD 10:38 | PROVIDERS: ATTEND Nurse Practitioner Family | DX: I12.9 Hypertensive chronic kidney disease with stage 1 through stage 4 chronic kidney disease, or unspecified chronic kidney disease (principal); N17.9 Acute kidney failure, unspecified; N18.9 Chronic kidney disease, unspecified ==

== ENCOUNTER → 2022-11-26 | Outpatient (REF) | payer MEDICARE, MEDICAID | LOC: M SFHCPLAZ 18:51 | PROVIDERS: ATTEND Family Medicine | DX: N18.32 Chronic kidney disease, stage 3b (principal); E03.9 Hypothyroidism, unspecified; Z13.220 Encounter for screening for lipoid disorders; Z13.1 Encounter for screening for diabetes mellitus ==

== ENCOUNTER → 2022-12-10 | Outpatient (CLI) | payer MEDICARE, MEDICAID | LOC: M RAD 16:28 | PROVIDERS: ATTEND Student in an Organized Health Care Education/Training Program | DX: Z12.2 Encounter for screening for malignant neoplasm of respiratory organs (principal); F17.210 Nicotine dependence, cigarettes, uncomplicated; R91.8 Other nonspecific abnormal finding of lung field; J43.9 Emphysema, unspecified; I70.0 Atherosclerosis of aorta; I25.10 Atherosclerotic heart disease of native coronary artery without angina pectoris ==

== ENCOUNTER → 2022-12-10 | Outpatient (CLI) | payer MEDICARE, MEDICAID ==
[2022-12-10 17:26] LABS: CALCIUM LEVEL 9.6 MG/DL (8.3-10.6); CHOLESTEROL RISK RATIO 3.36 (<5); CREATININE FOR GFR 1.57 MG/DL (0.55-1.30); GLOMERULAR FILTRATION RATE 35.7 (>45); HDL CHOLESTEROL 46.4 MG/DL (>40); NON-HDL-C 109.6 MG/DL; POTASSIUM SERUM 4.5 MMOL/L (3.5-5.1)
[2022-12-10 17:28] LABS: FREE T4 1.18 NG/DL (0.89-1.76); THYROID STIMULATING HORMONE 2.282 uIU/ML (0.55-4.78)
[2022-12-10 17:48] LABS: HEMOGLOBIN A1c 5.5 % (4.0-6.0)
== END ==
LOC: M WUC 13:57
PROVIDERS: ATTEND Student in an Organized Health Care Education/Training Program
DX: N18.32 Chronic kidney disease, stage 3b (principal); E03.9 Hypothyroidism, unspecified; Z13.1 Encounter for screening for diabetes mellitus; Z13.220 Encounter for screening for lipoid disorders

== ENCOUNTER → 2022-12-18 | Outpatient (REF) | payer MEDICARE, MEDICAID | LOC: M LAB REF 17:02 | PROVIDERS: ATTEND Nurse Practitioner Family | DX: N39.0 Urinary tract infection, site not specified (principal) ==

== ENCOUNTER → 2022-12-25 | Outpatient (REF) | payer MEDICARE, MEDICAID ==
[2022-12-25 17:09] LABS: APPEARANCE, URINE CLEAR (CLEAR); BACTERIA, URINE AUTO NEGATIVE (NEGATIVE); BILIRUBIN, URINE AUTO NEGATIVE (NEGATIVE); BLOOD, URINE BLOOD 1+ (NEGATIVE); COLOR, URINE YELLOW (YELLOW); GLUCOSE, URINE (UA) AUTO NEGATIVE (NEGATIVE); KETONE, URINE AUTO NEGATIVE (NEGATIVE); LEUKOCYTE ESTERASE, URINE AUTO NEGATIVE (NEGATIVE); NITRITE, URINE AUTO NEGATIVE (NEGATIVE); PROTEIN, URINE AUTO NEGATIVE (NEGATIVE); RBC, URINE AUTO 1 /HPF (0-3); SPECIFIC GRAVITY URINE AUTO 1.018 (1.002-1.035); SQUAMOUS EPITHELIAL CELL UR AU 0 /HPF (0-6); UROBILINOGEN, URINE AUTO 0.2 mg/dL (0.0-2.0); WBC, URINE AUTO 2 /HPF (0-3)
== END ==
LOC: M SFHCPLAZ 15:33
PROVIDERS: ATTEND Family Medicine
DX: Z01.818 Encounter for other preprocedural examination (principal); N39.0 Urinary tract infection, site not specified